=== PATIENT | female | born 1980 | race African-American/Black ===

== ENCOUNTER 2018-11-16 09:42 | Emergency (ER) | payer OTHER ==
[~2018-11-16] VITALS: Ht 182.9 cm; Wt 117.9 kg
[2018-11-16] MEDS ORDERED: OMEPRAZOLE40 MG PO (09:46)
[2018-11-16] MEDS ORDERED: ALLEGRA ALLERG180 MG PO (09:46)
[2018-11-16 10:03] LABS: URINE BILIRUBIN NEGATIVE (Negative); URINE BLOOD 3+ (Negative); URINE COLOR YELLOW; URINE GLUCOSE-RANDOM* NEGATIVE (Negative); URINE KETONES NEGATIVE (Negative); URINE LEUKOCYTES TRACE (Negative); URINE NITRITE NEGATIVE (Negative); URINE PROTEIN (DIPSTICK) 1+ (Negative); URINE SPECIFIC GRAVITY >= 1.030 (1.005-1.035); URINE UROBILINOGEN 0.2 E.U./dl (0.2-1.0)
[2018-11-16 10:05] LABS: URINE CLARITY SL HAZY
[2018-11-16 10:26] LABS: EOSINOPHILS 1.6 % (0.0-3.0); HEMATOCRIT 33.4 % (37.0-47.0); HEMOGLOBIN 10.7 gm/dL (12.0-15.0); LYMPHOCYTES 24.5 % (24.0-44.0); MCH 24.8 pg (26.0-34.0); MCHC 31.9 g/dL (28.0-37.0); MCV 77.9 fL (80.0-100.0); MONOCYTES 4.6 % (1.0-8.0); PLATELET COUNT 247 thou/uL (150-400); POLYS 68.3 % (36.0-66.0); RBC 4.29 mil/uL (4.20-5.00); RDW 17.1 % (10.5-14.5); WBC 7.3 thou/uL (4.0-11.0)
[2018-11-16 10:27] LABS: SQUAMOUS >10 Many /LPF (0-3)
[2018-11-16 10:28] LABS: CASTS None Seen /LPF (None Seen); MUCUS 4-6 Moderate strn/LPF (None Seen)
[2018-11-16 10:29] LABS: BACTERIA 1-9 Few /HPF (None Seen); CRYSTALS None Seen /LPF (None Seen); URINE RBC >20 Many /HPF (0-2); URINE WBC 0-5 Rare /HPF (0-5)
[2018-11-16 10:40] LABS: CALCIUM 8.7 mg/dL (8.5-10.1)
[2018-11-16 10:47] LABS: ALBUMIN 3.2 g/dL (3.4-5.0); TOTAL BILIRUBIN 0.4 mg/dL (<0.1-1.0)
[2018-11-16 12:16] VITALS: BP 126/67
== END 2018-11-16 12:40 | disposition home or self-care (01) ==
LOC: ER 09:42
PROVIDERS: Emergency Medicine
DX: O20.0 Threatened abortion (principal); Z3A.08 8 weeks gestation of pregnancy